=== PATIENT | male | born 1930 | race Caucasian/White ===

== ENCOUNTER 2019-11-08 12:30 | Emergency (ER) | payer MEDICAID, OTHER ==
[~2019-11-08] VITALS: Ht 160 cm; Wt 73.9 kg
[~2019-11-08 12:30] MED LIST: AMOX-426 PO; LORA10TA7 PO; LOSA100T3 PO; METF-509 PO; METO25TA3 PO; NOR10 PO
[2019-11-08 12:45] VITALS: BP_SYST 152
[2019-11-08] MEDS ORDERED: ACETAMINOPHEN 500 MG TABLET PO ONE (13:30)
[2019-11-08 13:55] VITALS: BP_SYST 152
== END 2019-11-08 13:55 | disposition home or self-care (01) ==
LOC: SED 12:30
DX: H66.92 Otitis media, unspecified, left ear (principal); E11.9 Type 2 diabetes mellitus without complications; I10 Essential (primary) hypertension; Z79.899 Other long term (current) drug therapy
CPT/HCPCS: 99283

== ENCOUNTER 2019-11-12 20:47 | Emergency (ER) | payer OTHER ==
[~2019-11-12] VITALS: Ht 160 cm; Wt 73.9 kg
[2019-11-12 21:30] VITALS: BP_SYST 146
--- NOTE | 2019-11-13 01:32 | NUR ---
Pt ambulatory to bed 3 for evaluation
--- NOTE | 2019-11-13 01:55 | NUR ---
Patient came into the ER due to headache and left ear pain. Patient advised that he was at the ER last week and received antibiotics but the earache and head ache is unreleived nor getting better. Patient has some slurred speech as well as non symmetrical eyes. Patient left eye slightly lower and smaller than right eye. Patient also advised that his tongue is going numb. MD aware. Patient not presenting any signs of acute distress.
--- NOTE | 2019-11-13 02:00 | NUR ---
ER Dr. Arrington at bedside examining patient.
[2019-11-13] MEDS ORDERED: MORPHINE 2 MG/ML INJ. SYRINGE IVP ONE ×2 (02:15→03:45)
--- NOTE | 2019-11-13 02:35 | NUR ---
Patient transported to radiology via [facility], accompanied by makayla.
[2019-11-13 02:44] LABS: BASOPHILS # (AUTO) 0.1 K/uL (0.0-0.2); BASOPHILS % (AUTO) 0.9 % (0.0-2.0); EOSINOPHILS # (AUTO) 0.3 K/uL (0.0-0.4); EOSINOPHILS % (AUTO) 2.8 % (0.0-4.0); HEMATOCRIT 37.5 % (36-54); HEMOGLOBIN 12.5 g/dL (14.0-18.0); LYMPHOCYTES # (AUTO) 2.7 K/uL (1.0-5.5); MEAN CORPUSCULAR HEMOGLOBIN 30 pg (27-31); MEAN CORPUSCULAR HGB CONC 33 % (32-36); MEAN CORPUSCULAR VOLUME 90 fL (79.0-98.0); MONOCYTES # (AUTO) 0.9 K/uL (0.0-1.0); MONOCYTES % (AUTO) 7.4 % (1.7-9.3); NEUTROPHILS # (AUTO) 8.2 K/uL (1.8-7.7); NEUTROPHILS % (AUTO) 66.9 % (40.0-70.0); PLATELET COUNT (AUTO) 312 K/uL (130-430); RED BLOOD CELL COUNT(AUTO) 4.17 MIL/uL (4.2-6.2); RED CELL DISTRIBUTION WIDTH 12.9 % (9.0-15.0); WHITE BLOOD COUNT (AUTO) 12.3 K/uL (4.8-10.8)
[2019-11-13 02:54] LABS: ANION GAP 9 (5-15); CALCIUM 8.7 mg/dL (8.4-11.0); CHLORIDE 100 mmol/L (98-107); CREATININE 1.11 mg/dL (0.55-1.30); GLUCOSE 109 mg/dL (70-99); POTASSIUM 3.4 mmol/L (3.5-5.1); SODIUM SERUM 141 mmol/L (136-145); UREA NITROGEN, BLOOD 16 mg/dL (8-21)
[2019-11-13 03:00] LABS: ALANINE AMINOTRANSFERASE 17 U/L (12-78); ALBUMIN 3.5 g/dL (3.4-4.8); ASPARTATE AMINOTRANSFERASE 16 U/L (10-37); TOTAL BILIRUBIN 0.3 mg/dL (0.0-1.0)
--- NOTE | 2019-11-13 03:00 | NUR ---
Patient resting quietly. No acute distress noted. Vital signs within normal range. Daughter at bedside.
[2019-11-13] MEDS ORDERED: cefTRIAXone 1 GM IVPB PREMIX 50 ML IV ONE (03:45)
--- NOTE | 2019-11-13 05:00 | NUR ---
Patient resting quietly. No acute distress noted. Vital signs within normal range.
--- NOTE | 2019-11-13 06:45 | NUR ---
Called [facility] spoke to receiving nurse Subah and provided plan of care via sbar.
--- NOTE | 2019-11-13 07:32 | NUR ---
[place] [facility] [place] S[place] AND PATIENT/FAMILY ADVISED OF PLAN; PATIENT IS SEDATE AND PAIN MANAGED; FULL HEAD TO TOE ASSESSMENT REVEALS NO OTHER REMARKABLE S/S
[2019-11-13 07:44] VITALS: BP_SYST 165
--- NOTE | 2019-11-13 07:48 | NUR ---
REPORT TO EMT BLS TRANSPORT TEAM; [place]SP[place] [facility] [place] [facility]; UNCHANGED; PATENT IV #20 RAC
== END 2019-11-13 07:44 | disposition short-term general hospital (02) ==
LOC: SED 20:47
DX: H70.002 Acute mastoiditis without complications, left ear (principal); E11.9 Type 2 diabetes mellitus without complications; I10 Essential (primary) hypertension; Z79.899 Other long term (current) drug therapy; Z88.6 Allergy status to analgesic agent
CPT/HCPCS: 36415; 70450; 70486; 80053; 85025; 85610; 85651; 85730; 96365; 96375; 96376; 99285; J0696; J2270

== ENCOUNTER 2019-11-19 10:17 | Emergency (ER) | payer OTHER ==
[~2019-11-19] VITALS: Ht 162.6 cm; Wt 70.3 kg
--- NOTE | 2019-11-19 10:25 | NUR ---
Patient to ER bed 01 to gown for evaluation. Side rails up.
--- NOTE | 2019-11-19 10:26 | NUR ---
Patient arrived in the ED c/o left-sided facial pain that started a week ago. Patient denied any chest pain or shortness of breath. Denied any fevers, chills, nausea, or vomiting. Patient is alert and oriented x4, respirations even and unlabored, speaking in full sentences, ambulating with a steady gait. VSS, pain level 10/10. Informed of approximate wait time. Instructed to notify ED staff for any changes in condition or worsening of symptoms. Patient verbalized understanding.
--- NOTE | 2019-11-19 10:30 | NUR ---
Patient ambulated to the bathroom with a steady gait. Urine specimen collected and dipped.
[2019-11-19 10:39] VITALS: BP_SYST 163
--- NOTE | 2019-11-19 11:01 | NUR ---
DR ABBOTT AT BEDSIDE FOR EVALUATION
[2019-11-19] MEDS ORDERED: HYDROcodone/ACETAMIN 10-325 MG TAB PO ONE (11:15)
--- NOTE | 2019-11-19 11:15 | NUR ---
Administered [place] PO as ordered by Dr. Penaloza. Patient tolerated the medication well. See eMAR for details.
--- NOTE | 2019-11-19 11:30 | NUR ---
Patient given written and verbal discharge instructions and verbalizes understanding. ER MD discussed with patient the results and treatment provided. Patient in stable condition. ID arm band removed. Rx of Augmentin and [place] given. Patient educated on pain management and to follow up with PMD. Pain Scale 0/10. Opportunity for questions provided and answered. Medication side effect fact sheet provided.
[2019-11-19 11:45] VITALS: BP_SYST 138
== END 2019-11-19 11:45 | disposition home or self-care (01) ==
LOC: SED 10:17
DX: H70.92 Unspecified mastoiditis, left ear (principal); I10 Essential (primary) hypertension; E11.9 Type 2 diabetes mellitus without complications; Z79.82 Long term (current) use of aspirin; Z79.899 Other long term (current) drug therapy
CPT/HCPCS: 81002; 99283